=== PATIENT | male | born 2000 | race Caucasian/White ===

== ENCOUNTER 2025-06-22 19:07 | Emergency (ER) | payer BC, SELFPAY ==
[2025-06-22 19:28] VITALS: BP 143/77; PULSE 77; RESP 16; TEMP 37.1; O2SAT 99; BMI 20.9
[2025-06-22] MEDS: diphenhydrAMINE 25 MG TABLET 50 MG PO (21:23)
[2025-06-22] MEDS: IBUPROFEN 400 MG TABLET PO (21:24)
--- NOTE | 2025-06-22 22:44 | ED_ITS ---
HPI - Skin/Abscess/Foreign Bdy General Chief complaint: Skin/Abscess/Foreign Body Stated complaint: chemical burn? Time Seen by Provider: 06/22/25 19:25 Source: patient, RN notes reviewed and old records reviewed Mode of arrival: Ambulatory Limitations: no limitations History of Present Illness HPI narrative: 24-year-old male no reported medical issues comes in with a complaint of possible infection versus reaction to topical medication. Patient states he was hiking yesterday had a sting or a poke or something to the 3rd toe on his left foot. Had pain and discomfort as well as some swelling in the foot itself throughout the day. Was recommended to put a topical medication on it has arnica, Saint Nura's Wort as well as some other things in it which he did he is unsure exactly how high he placed everything but developed increasing redness swelling and blistering after placing that this evening. Patient states no fevers. No chest pain or shortness of breath. No nausea or vomiting. No other GI or urinary symptoms. He has never had any reaction to topical ointments or medications in the past. No known drug allergies. Patient notes they did not have any blistering until after he placed that on top. States up-to-date with his tetanus. No tobacco. Patient lives on [facility]. Related Data Previous Rx's ?Medication ?Instructions ?Recorded doxycycline hyclate 100 mg tablet 100 mg PO BID #20 ta bs 06/22/25 Allergies Allergy/AdvReac Type Severity Reaction Status Date / Time No Known Drug Allergies Allergy Verified 06/22/25 19:36 Review of Systems Review of Systems ROS Unobtainable: All systems reviewed & are unremarkable except as noted in HPI and below Patient History Social History Smoking Status: Never smoker Smoking Status: Never smoker Exam Narrative Exam Narrative: GENERAL: Alert and oriented x three, male in mild distress HEENT: Head normocephalic, atraumatic, EOMI, pupils reactive, face symmetric, moist mucous membranes NECK: Supple, full range of motion CARDIOVASCULAR: Regular rate and rhythm without murmurs, rubs or gallops. RESPIRATORY: Breath sounds equal bilaterally, no wheezes rales or rhonchi. ABDOMEN: Soft, nontender. Normoactive bowel sounds all 4 quadrants. No guarding or rebound, rigidity, no mass : No CVA tenderness EXTREMITIES: Normal range of motion, no clubbing. Neurovascularly intact. Patient has a edema of the left foot, toes and calf. There is some erythema extending over the dorsum of the foot and residential up the sifuentes. There is a large blister on the dorsum of the foot adjacent to the 3rd and 4th digits, he also has several blisters on the lateral ankle. Patient does have what appears to be a small puncture on his 3rd toe. Patient has mild tenderness. Cap refills less than 2 seconds throughout the left foot. 2+ dorsalis pedis. NEUROLOGICAL: Cranial nerves II through XII grossly intact. Moving all extremities SKIN: Warm, dry, no petechiae, no rashes or lesions otherwise noted. Initial Vital Signs Initial Vital Signs: Vital Signs Temperature 98.7 F 06/22/25 19:28 Pulse Rate 77 06/22/25 19:28 Respiratory Rate 16 06/22/25 19:28 Blood Pressure 143/77 H 06/22/25 19:28 Pulse Oximetry 99 06/22/25 19:28 Oxygen Delivery Method Room Air 06/22/25 19:28 Course Orders Ordered: Discontinued Medications Hydrocodone Bitart/Acetaminophen (Hydrocodone/Acet 5/325 Prepack) 1 bottle MISC DIRECTED ONE Stop: 06/22/25 23:27 Last Admin: 06/22/25 23:42 Dose: 1 bottle Documented By: NIKUNJ Diphenhydramine HCl (Diphenhydramine 25 Mg Tablet) 50 mg PO NOW ONE Stop: 06/22/25 21:21 Last Admin: 06/22/25 21:23 Dose: 50 mg Documented By: CRYSTAL Doxycycline Hyclate (Doxycycline Hyclate 100 Mg Tablet) 100 mg PO NOW ONE Stop: 06/22/25 23:27 Last Admin: 06/22/25 23:42 Dose: 100 mg Documented By: NIKUNJ Ibuprofen (Ibuprofen 400 Mg Tablet) 400 mg PO NOW ONE Stop: 06/22/25 21:21 Last Admin: 06/22/25 21:24 Dose: 400 mg Documented By: CRYSTAL Prednisone (Prednisone 20 Mg Tablet) 20 mg PO NOW ONE Stop: 06/22/25 23:27 Last Admin: 06/22/25 23:42 Dose: 20 mg Documented By: NIKUNJ Vital Signs Vital signs: Vital Signs - 8 hr 06/23/25 00:00 Temperature 97.7 F Pulse Rate 65 Respiratory Rate 18 Blood Pressure 146/78 H Pulse Oximetry 99 Oxygen Delivery Method Room Air MDM - Skin/Abscess/Foreign Bdy MDM Narrative Medical decision making narrative: Patient received ibuprofen and Benadryl prior to evaluation. Patient has what looks like a puncture patient is unsure if it was an insect sting or something else, maybe having a localized reaction versus cellulitis but also noted he put a topical medication on which seemed to worsen everything very rapidly. Maybe a little bit of a combination of the 2 we will start on oral antibiotics but also give a short course of steroid. Patient did cleanse the area to remove any of the topical medication. Discussed return precautions. Patient is having worsening redness spreading up his legs he is to return and may require admission. Blisters were drained and bandage applied. Discharge Plan Departure Patient Disposition: Home Clinical Impression: Cellulitis Instructions: DI for Cellulitis -- Adult Activity Restrictions/Additional Instructions: Follow up for recheck in the next 24 hours. Take oral antibiotics until completed. Take steroids as prescribed. You can take [facility] 1 tablet every 6 hours as needed for pain. Prescription sent to [facility] in [place]. Please return for fevers, rapidly worsening swelling, increasing or spreading redness, worsening blistering, any new numbness or loss of sensation, any blue, pale or purple discoloration or other new or concerning changes. Prescriptions: New doxycycline hyclate 100 mg tablet 100 mg PO BID Qty: 20 0RF Stand Alone Forms: Patient Portal/API
--- NOTE | 2025-06-22 23:18 | PC.NURSE ---
pt was hiking yesterday and felt sting but did not witness insect type yesterday on left foot second digit patient reporting attempting a topical spray which led to several blisters scattered across top of foot and ankle. patient cms intact but redness spreading up leg and thigh
[2025-06-22] MEDS: DOXYCYCLINE HYCLATE 100 MG TABLET PO (23:42)
[2025-06-23] VITALS: BP 146/78; PULSE 65; RESP 18; TEMP 36.5; O2SAT 99
== END 2025-06-23 00:02 | disposition home or self-care (01) ==
PROVIDERS: Emergency Provider Emergency Medicine
DX: L03.032 Cellulitis of left toe (principal)
CPT/HCPCS: 99283